=== PATIENT | male | born 1970 | race Caucasian/White ===

== ENCOUNTER 2016-05-24 20:53 | Emergency (ER) | payer OTHER ==
[~2016-05-24] VITALS: Ht 180.3 cm; Wt 95.3 kg
--- NOTE | 2016-05-24 21:01 | ED CARDIAC/CP/PALPITATIONS ---
History of Present Illness General Chief Complaint: Chest Pain Stated Complaint: EPISODE OF CHEST PAIN 1HR AGO, NOW BETTER Source: patient Exam Limitations: no limitations Vital Signs & Intake/Output Vital Signs & Intake/Output Vital Signs Date Time Temp Pulse Resp B/P Pulse O2 O2 Flow FiO2 Ox Delivery Rate 05/25 0150 98.2 72 18 110/70 96 Room Air 05/24 2305 74 16 130/74 95 Room Air 05/24 2134 99 Room Air 05/24 2106 98.0 77 18 137/80 96 Room Air ED Intake and Output 05/25 0000 05/24 1200 Intake Total Output Total Balance Patient 210 lb Weight Allergies Coded Allergies: No Known Allergies (05/24/16) Triage Nurses Notes Reviewed? yes Onset: Abrupt Duration: minute(s):, gone now Timing: single episode today Quality/Severity: moderate Location: XIP[facility] PAIN Radiation: no radiation Activities at Onset: WATCHING TV Prior Chest Pain/Card Workup: no prior chest pain Aspirin Today: 325 mg x 1, provided at home Associated Symptoms: diaphoresis HPI: 46 yo gentleman presents withchest pain. He notes the he had substernal/xiphoid type pain that began approximately 1 hour ago. Upon arrival to the ED, it has now resolved. His notes, "He looked pale and sweaty for a few minutes." He had no shortness of breath, dyspnea, chills, cough, wheeze. He is otherwise well. Past History Travel History Traveled to [place] past 21 day No Medical History Any Pertinent Medical History? none Surgical History Surgical History: none Family History Hx Contributory? No Review of Systems Review of Systems Constitutional: Reports: no symptoms. EENTM: Reports: no symptoms. Respiratory: Reports: no symptoms. Cardiovascular: Reports: no symptoms. GI: Reports: no symptoms. Genitourinary: Reports: no symptoms. Musculoskeletal: Reports: no symptoms. Skin: Reports: no symptoms. Neurological/Psychological: Reports: no symptoms. Hematologic/Endocrine: Reports: no symptoms. Immunologic/Allergic: Reports: no symptoms. All Other Systems: Reviewed and Negative Physical Exam Physical Exam General Appearance: well developed/nourished, no apparent distress Head: atraumatic, normal appearance Eyes: Bilateral: normal appearance. Ears, Nose, Throat: normal pharynx, normal ENT inspection Neck: normal inspection, supple, full range of motion Respiratory: normal breath sounds, chest non-tender, no respiratory distress, quiet respiration, lungs clear Cardiovascular: regular rate/rhythm Gastrointestinal: normal bowel sounds, soft, non-tender, no organomegaly Back: normal inspection, normal range of motion Extremities: normal inspection, normal capillary refill, normal range of motion Neurologic/Psych: no motor/sensory deficits, awake, alert, oriented x 3 Skin: intact, normal color, warm/dry Core Measures ACS in differential dx? No Severe Sepsis Present: No Septic Shock Present: No Progress Differential Diagnosis: AMI, musculoskeletal pain, pulmonary embolism, PUD/GERD, unstable angina Plan of Care: Orders Procedure Date/time Status TROPONIN LEVEL 05/25 9 Complete EKG 05/25 9 Active TROPONIN LEVEL 05/24 2101 Complete PARTIAL THROMBOPLASTIN TIME 05/24 2101 Complete PROTHROMBIN TIME 05/24 2101 Complete D-DIMER 05/24 2101 Complete COMPREHENSIVE METABOLIC PANEL 05/24 2101 Complete CBC WITHOUT DIFFERENTIAL 05/24 2101 Complete EKG 05/24 2053 Active Laboratory Tests 05/25/16 0024: Troponin I < 0.01 05/24/162108: Anion Gap 14, Estimated GFR > 60, BUN/Creatinine Ratio 20.0, Glucose 113 H, Calcium 9.4, Total Bilirubin 0.6, AST 21, ALT 45, Alkaline Phosphatase 50, Troponin I < 0.01, Total Protein 6.0 L, Albumin 3.9, Globulin 2.1, Albumin/ Globulin Ratio 1.9, PT 10.4, INR 0.99, APTT 29, D-Dimer < 200, CBC w Diff NO MAN DIFF REQ, RBC 5.19, MCV 88.5, MCH 29.6, RDW 12.9, MPV 7.1 L, Gran % 48.6, Lymphocytes % 38.3, Monocytes % 9.1, Eosinophils % 3.4, Basophils % 0.6, Absolute Granulocytes 2.9, Absolute Lymphocytes 2.3, Absolute Monocytes 0.5, Absolute Eosinophils 0.2, Absolute Basophils 0, PUBS MCHC 33.5 Diagnostic Imaging: Viewed by Me: Radiology Read. Discussed w/RAD: Radiology Read. CXR Impression: no acute abnormality, no infiltrates, normal size heart, normal mediastinum, left atelectasis Initial ED EKG: normal axis, normal intervals, normal p-waves, normal QRS complex, normal sinus rhythm Repeat EKG: unchanged Comments: PATIENT: GERARDO,GIDEON PRESENT AGE: 46 PATIENT ACCOUNT NO: [id number] : 68 LOCATION: [facility] ORDERING PHYSICIAN: MARIA T GUTIÉRREZ MD SERVICE DATE: 05/24/16 EXAM TYPE: RAD - XRY-PORTABLE CHEST XRAY EXAMINATION: XR CHEST PORTABLE CLINICAL INFORMATION: Chest pain. COMPARISON: No relevant prior studies are available for comparison. TECHNIQUE: Portable AP view of the chest was obtained. FINDINGS: Mild elevation of the left hemidiaphragm with associated left lower lobe atelectasis. No focal consolidation. No pleural effusion or pneumothorax. No cardiomediastinal silhouette enlargement. No abnormal soft tissue calcification. IMPRESSION: Mild elevation of the left hemidiaphragm with associated left lower lobe atelectasis. DICTATED BY: BENSON BOYD MD DATE/TIME DICTATED:05/24/162227 ANSWERING SERVICE OPERATOR:ALTAGRACIA DATE/TIME TRANSCRIBED:05/24/162227 CONFIDENTIAL, DO NOT COPY WITHOUT APPROPRIATE AUTHORIZATION. <Electronically signed in Other Vendor System> SIGNED BY: BENSON BYOD MD [id number] Departure Departure Disposition: HOME OR SELF CARE Condition: Stable Clinical Impression Primary Impression: Chest pain Departure Forms: Customer Survey General Discharge Information Comments 05/24/16, 949pm... discussed with dr. robbins, lan engineer. If second troponin/ ekg benign, pt safe for discharge. 05/25/16, 1:45am... trop neg/ekg benign x 2... pt safe for discharge... discused at length with patient. pt to follow up with dr. robbins later today. pt well appearing, without chest pain, throughout ED stay. Critical Care Note Critical Care Note Critical Care Time: non-applicable
[2016-05-24 21:18] LABS: ABSOLUTE BASOPHIL COUNT 0 /CUMM (0.0-0.2); ABSOLUTE EOSINOPHIL COUNT 0.2 /CUMM (0.0-0.7); ABSOLUTE GRANULOCYTE CT 2.9 /CUMM (1.4-6.5); ABSOLUTE LYMPH COUNT 2.3 /CUMM (1.2-3.4); ABSOLUTE MONOCYTE COUNT 0.5 /CUMM (0.10-0.60); BASOPHIL % 0.6 % (0.0-2.0); EOSINOPHIL % 3.4 % (0-5); GRANULOCYTE % 48.6 % (42.2-75.2); HEMATOCRIT 45.9 % (42-52); MEAN CORPUSCULAR HGB 29.6 PG (27.0-31.0); MEAN CORPUSCULAR HGB CONC 33.5 G/DL (33.0-37.0); MEAN CORPUSCULAR VOLUME 88.5 FL (80.0-94.0); MEAN PLATELET VOLUME 7.1 FL (7.4-10.4); PLATELET COUNT 357 /CUMM (130-400); RBC DISTRIBUTION WIDTH 12.9 % (11.5-14.5); RED BLOOD CELL CT 5.19 /CUMM (4.70-6.10)
[2016-05-24 21:29] LABS: PT 10.4 SEC (9.4-12.5); PTT 29 SEC (25-37)
--- NOTE | 2016-05-24 22:41 | RADIOLOGY REPORT ---
EXAMINATION: XR CHEST PORTABLE CLINICAL INFORMATION: Chest pain. COMPARISON: No relevant prior studies are available for comparison. TECHNIQUE: Portable AP view of the chest was obtained. FINDINGS: Mild elevation of the left hemidiaphragm with associated left lower lobe atelectasis. No focal consolidation. No pleural effusion or pneumothorax. No cardiomediastinal silhouette enlargement. No abnormal soft tissue calcification. IMPRESSION: Mild elevation of the left hemidiaphragm with associated left lower lobe atelectasis.
[2016-05-25 01:50] VITALS: BP 110/70
== END 2016-05-25 02:00 ==
LOC: ERH 20:53
PROVIDERS: Pediatrics
DX: R07.89 Other chest pain (principal)
CPT/HCPCS: 93005; 93010